=== PATIENT | female | born 1995 | race Caucasian/White ===

== ENCOUNTER 2017-11-08 17:20 | Emergency (ER) | payer OTHER ==
[2017-11-08 17:31] VITALS: BP 126/89
[2017-11-08] MEDS ORDERED: predniSONE 20 MG TABLET PO STA (17:44)
[2017-11-08] MEDS ORDERED: HYDROcod/ACET 5/325 Prepack 4 PO STA (17:44)
--- NOTE | 2017-11-08 17:46 | ED Physician Documentation ---
History of Present Illness - Stated complaint Stated Complaint: BILAT LEG PX/WEAKNESS - Chief complaint Chief Complaint: Ext Problem - History obtained from History obtained from: Patient - History of Present Illness Timing: Other (She been having left lower back pain for several weeks. She seen her physician and had normal labs and it sounds like she is being referred for EMG testing. Starting today she has felt weak and numb on the lateral left leg which is new. There is no associated saddle anesthesia or fevers. No incontinence.) Review of Systems Constitutional: denies: Fever, Chills Cardiac: denies: Chest pain / pressure, Palpitations Respiratory: denies: Dyspnea, Cough GI: denies: Abdominal Pain PD PAST MEDICAL HISTORY - Past Medical History Past Medical History: Yes Psych: Depression, Anxiety - Past Surgical History Past Surgical History: No - Present Medications Home Medications: Ambulatory Orders Medication Instructions Recorded Confirmed Bupropion HCl [Wellbutrin] 300 mg DAILY 09/05/14 01/18/15 Escitalopram [Lexapro] 10 mg PO DAILY 11/08/17 11/08/17 HYDROcod/ACETAM 5/325 [[place] 5/325] 1 - 2 ea PO Q6H PRN #15 tablet 11/08/17 predniSONE [Deltasone] 20 mg PO [id number] #21 tab 11/08/17 - Allergies Allergies/Adverse Reactions: Allergies Allergy/AdvReac Type Severity Reaction Status Date / Time No Known Drug Allergies Allergy Verified 11/08/17 17:31 - Social History Does the pt smoke?: No Smoking Status: Never smoker Does the pt drink ETOH?: Yes Does the pt have substance abuse?: No - Immunizations Immunizations are current?: Yes PD ED PE NORMAL - Vitals Vital signs reviewed: Yes - General General: Alert and oriented X 3, No acute distress - Abdomen Abdomen: Normal bowel sounds, Soft, Non tender - Back Back: Other (She has diminished sensation over the left lateral thigh, the rest of the leg is grossly intact, she has equal patellar reflexes but a decreased Achilles reflex on the left.) - Neuro Neuro: Alert and oriented X 3, Normal speech - Psych Psych: Normal mood, Normal affect Results - Vitals Vitals: Vital Signs - 24 hr 11/08/17 17:29 Temperature 36.2 C L Heart Rate 78 Respiratory 20 Rate Blood Pressure 126/89 H O2 Saturation 98 Oxygen O2 Source Room air PD MEDICAL DECISION MAKING - ED course ED course: The left lower back pain that she has been dealing with for a few weeks is now declared itself as being due to probably a disc herniation on the left causing radicular symptoms which she is treated with prednisone and Vicodin. - Sepsis Event Vital Signs: Vital Signs - 24 hr 11/08/17 17:29 Temperature 36.2 C L Heart Rate 78 Respiratory 20 Rate Blood Pressure 126/89 H O2 Saturation 98 Oxygen O2 Source Room air Departure - Departure Disposition: 01 Home, Self Care Clinical Impression: Lumbar radiculopathy Condition: Good Record reviewed to determine appropriate education?: Yes Instructions: ED Sciatica Prescriptions: HYDROcod/ACETAM 5/325 [[place] 5/325] 1 - 2 ea PO Q6H PRN #15 tablet PRN Reason: Pain predniSONE [Deltasone] 20 mg PO [id number] #21 tab Comments: Call your doctor to arrange a follow-up appointment, make the next available appointment. In the interim, return anytime if worse or if new symptoms develop. Your blood pressure was elevated today on check into the emergency department. This does not mean that you have hypertension, it is a common phenomenon to come to the emergency department and have elevated blood pressure. I recommend that you see your primary care physician within the week to have it rechecked when you are feeling better. Do not drink or drive while taking narcotic pain medication. Note that many narcotic pain relievers also contain Tylenol/acetaminophen. Please ensure that your total dose of acetaminophen from all sources does not exceed 3 g (3000 mg) per day. You may get constipated while on this medication. Take a stool softener such as Colace twice a day while you are on it. Also add an xrvm-cyv-gyyjodm laxative such as senna or MiraLAX on any day that you do not have a bowel movement. If you received a narcotic pain medication or sedative while in the emergency department, do not drive for the next 24 hours.
== END 2017-11-08 18:13 | disposition home or self-care (01) ==
LOC: ED 17:20
DX: M54.16 Radiculopathy, lumbar region (principal)
CPT/HCPCS: 99283; J7512

== ENCOUNTER 2018-07-16 13:06 | Day surgery (SDC) | payer OTHER ==
[2018-07-16] MEDS ORDERED: LACTATED RINGERS 1,000 ML IV ONE ×2 (13:31→15:15)
[2018-07-16] MEDS ORDERED: BUPIVACAINE 0.25% PF 10 ML VIAL ONE (13:38)
--- NOTE | 2018-07-16 13:48 | ANESTHESIA ---
Pre-Anesthesia VS, & Labs - Diagnosis Desires sterilization - Procedure Bilateral laparoscopic salpingectomies Height 5 ft 2 in Weight (kg) 58.97 kg Body Mass Index 25.0 - NPO >8 hours - Is Patient ?: No Home Medications and Allergies Home Medications: Ambulatory Orders Amitriptyline [Elavil] 10 mg PO HS 07/08/18 DULoxetine [Cymbalta] 90 mg PO DAILY 07/08/18 Amitriptyline [Elavil] 10 mg PO HS 07/08/18 DULoxetine [Cymbalta] 90 mg PO DAILY 07/08/18 Allergies/Adverse Reactions: Allergies Allergy/AdvReac Type Severity Reaction Status Date / Time No Known Drug Allergies Allergy Verified 07/08/18 09:58 Anes History & Medical History - Anesthetic History Family history of Anesthesia Complications: Denies Family history of Malignant Hyperthermia: Denies - Medical History Cardiovascular: reports: None Pulmonary: reports: None Gastrointestinal: reports: None Urinary: reports: None Neuro: reports: None Musculoskeletal: reports: Fibromyalgia, Chronic back pain Endocrine/Autoimmune: reports: None Blood Disorders: reports: None Skin: reports: None Smoking Status: Never smoker Psychosocial: reports: Depression, Other (History of PTSD) Exam General: Alert, Oriented x3, Cooperative, No acute distress Dental: WNL, Other (chipped front) Mouth Openin Fingerbreadth Neck Mobility: Normal Mallampati classification: I Thyromental Distance: 4-6 cm Respiratory: Lungs clear, Normal breath sounds, No respiratory distress, No accessory muscle use Cardiovascular: Regular rate, Normal S1, Normal S2, No murmurs Mental/Cognitive Status: Alert/Oriented X3, Normal for patient Plan Anesthesia Type: General Consent for Procedure(s) Verified and Reviewed: Yes Code Status: Attempt Resuscitation ASA classification: 2-Mild systemic disease Is this case an emergency?: No
[2018-07-16] MEDS ORDERED: BUPIVACAINE 0.25% PF 10 ML VIAL SUBQ ONE ×2 (14:51)
[2018-07-16] MEDS ORDERED: SUGAMMADEX 200 MG/2 ML VIAL IVP ONE (15:28)
[2018-07-16] MEDS ORDERED: MIDAZOLAM 2 MG/2 ML VIAL IVP ONE ×2 (15:33)
[2018-07-16] MEDS ORDERED: PROPOFOL 200 MG/20 ML VIAL IVP ONE ×2 (15:33)
[2018-07-16] MEDS ORDERED: HYDROmorphone 1 MG/ML SYRINGE IM ONE ×2 (15:33)
[2018-07-16] MEDS ORDERED: ROCURONIUM 50 MG/5 ML VIAL IVP ONE ×2 (15:33)
[2018-07-16] MEDS ORDERED: fentaNYL 100 MCG/2 ML VIAL IVP ONE ×2 (15:33)
[2018-07-16] MEDS ORDERED: ONDANSETRON 4 MG/2 ML VIAL IVP ONE ×2 (15:33)
[2018-07-16] MEDS ORDERED: KETOROLAC 30 MG/ML VIAL IVP ONE ×2 (15:33)
[2018-07-16] MEDS ORDERED: DEXAMETHASONE 4 MG/ML VIAL IVP ONE ×2 (15:33)
[2018-07-16] MEDS ORDERED: ACETAMINOPHEN 1,000 MG/100 ML 100 ML IV ONE (15:44)
[2018-07-16] MEDS ORDERED: HYDROcod/ACETAM 10 MG/325 MG TABLET PO PRN (15:51)
[2018-07-16] MEDS ORDERED: HYDROmorphone 0.5 MG/0.5 ML SYRINGE ONE (15:54)
--- NOTE | 2018-07-16 15:54 | OPERATIVE REPORT ---
Operative Report - General Procedure Date: 07/16/18 Planned Procedure: Laparoscopic bilateral salpingectomies Pre-Op Diagnosis: Undesired fertility Procedure Performed: Same as above Post Op Diagnosis: Same as above - Procedure Note Primary Surgeon: Adan Secondary Surgeon: Lenard Anesthesia Provider: Yolette Anesthesia Technique: General ET tube Pathology: Portions of both fallopian tubes Estimated Blood Loss (mL): 5 Indications: Undesired fertility Findings: Examination under anesthesia The uterus was of normal size shape and consistency and retroverted. The adnexa were benign. Operative findings: The uterus, tubes and ovaries are all within normal limits. The posterior cul-de-sac had 2 Macarena's windows. Both ovarian fossae were normal. The anterior cul-de-sac was normal. The appendix, liver edge, and gallbladder all appeared normal. - Other Other Information/Narrative: Procedure: The patient was taken to the operating room, where general endotracheal anesthesia was administered without difficulty. She was then positioned in the low dorsal lithotomy position with her lower extremities in [place] stirrups. Vagina, perineum, and abdomen were then prepped and draped in a sterile fashion. Procedure Time-Out was then performed. A sterile bivalve speculum was then inserted into the vagina. A tenaculum was placed at the anterior lip of the cervix, then a HUMI uterine manipulator was placed and the balloon inflated. The tenaculum and speculum were then removed from the vagina. Attention was then turned to the laparoscopy. 0.25% Marcaine was injected infraumbilically, then a 7-mm horizontal skin incision made. A Verres needle was then inserted through the anterior layers of the abdominal wall with saline drop test suggesting intraperitoneal placement. Carbon dioxide gas insufflation was then performed with appropriate opening pressures noted. Once 2 L of gas was instilled, a 0-degree, 5 mm laparoscope was inserted into a 5 mm trocar and passed through the anterior layers of the abdominal wall using Optiview technique. The abdomen was visualized, then 2 additional ports placed at the right and left lower quadrants, first instilling local anesthetic, then placing 5 mm ports. The patient was placed into Trendelenberg and bowel swept out of the cul-de-sac. The right, distal fallopian tube was then grasped and pulled anteriorly and superiorly. The tubo-ovarian ligament was then crossclamped, cauterized, and cut using the PlasmaKinetic, then the mesosalpinx was crossclamped, cauterized, and cut, completely the right fallopian tube from the uterus at the cornual region. The right fallopian tube was then removed from the abdomen. The left distal fallopian tube was then grasped and pulled anteriorly and superiorly. The tubo-ovarian pedicle was then crossclamped, cauterized, and cut, the distal left fallopian tube from the left ovary. The mesosalpinx was then serially cauterized and cut until the cornual region was reached, then the cornual fallopian tube was crossclamped cauterized and cut. The surgical sites appeared hemostatic. The left fallopian tube was removed from the abdomen. At this point the laparoscopy was deemed complete, and all trochars were removed from the abdomen. The carbon dioxide gas was then allowed to escape. The incisions were then closed with 4-0 Monocryl in a subcuticular fashion followed by Dermabond skin adhesive. The HUMI uterine manipulator was removed. The sterile bivalve speculum was then reinserted to ensure that the tenaculum sites were hemostatic. No bleeding was noted, and the speculum was then removed. At this point the procedure was deemed complete. The patient was then replaced supine, awakened, extubated, and transferred to the PACU in stable condition.
[2018-07-16 16:08] LABS: HCG UR QUAL NEGATIVE
[2018-07-16 17:24] VITALS: BP 121/67
== END 2018-07-16 13:07 | disposition home or self-care (01) ==
LOC: SDS 13:06
PROVIDERS: ATTEND Obstetrics & Gynecology
PROC: 0UB74ZZ Excision of Bilateral Fallopian Tubes, Percutaneous Endoscopic Approach (ICD-10-PCS; principal; 2018-07-16 14:30)
DX: Z30.2 Encounter for sterilization (principal)
CPT/HCPCS: 58661; 81025; J0131; J1170; J7120

== ENCOUNTER 2021-03-26 14:45 | Emergency (ER) | payer OTHER ==
--- NOTE | 2021-03-26 15:35 | ED Physician Documentation ---
PD HPI HEAD INJURY - Stated complaint Stated Complaint: HEAD INJ - Chief complaint Chief Complaint: Trauma Hd/Nk - History obtained from History obtained from: Patient - History of Present Illness Mechanism of head injury: Fell Where head injury occurred: [place] (she was sledding down hill and foot caught snow, turned the sled and she slammed into fencepost, striking back of head. Denies other injury.) Timing - onset: How many minutes ago (20) Location of injury: Back Quality of pain: Throbbing, Aching Associated symptoms: AMS, Nausea / vomiting. No: LOC (dazed for few seconds and then felt lightheaded and some nausea. Improving now.), Neck pain, Paresthesias Symptoms worsen with: Palpation Contributing factors: No: Anticoagulated, Intoxicated Similar symptoms before: Has not had sx before Review of Systems Constitutional: denies: Fever Nose: denies: Rhinorrhea / runny nose, Congestion Throat: denies: Sore throat Respiratory: denies: Cough GI: reports: Nausea (for few minutes). denies: Vomiting, Diarrhea Skin: reports: Laceration (s) (scalp) Musculoskeletal: denies: Neck pain, Back pain Neurologic: denies: Focal weakness, Numbness PD PAST MEDICAL HISTORY - Past Medical History Cardiovascular: None Respiratory: None Neuro: None Endocrine/Autoimmune: None GI: None : None HEENT: None Psych: Depression Musculoskeletal: Fibromyalgia, Chronic back pain Derm: None - Past Surgical History Past Surgical History: No - Present Medications Home Medications: Ambulatory Orders Medication Instructions Recorded Confirmed Amitriptyline [Elavil] 10 mg PO HS 07/08/18 07/16/18 DULoxetine [Cymbalta] 90 mg PO DAILY 07/08/18 07/16/18 - Allergies Allergies/Adverse Reactions: Allergies Allergy/AdvReac Type Severity Reaction Status Date / Time No Known Drug Allergies Allergy Verified 03/26/21 15:04 - Social History Does the pt smoke?: No Smoking Status: Never smoker Does the pt drink ETOH?: Yes Does the pt have substance abuse?: No - Immunizations Immunizations are current?: Yes PD ED PE NORMAL - Vitals Vital signs reviewed: Yes - General General: Alert and oriented X 3, Well developed/nourished - HEENT HEENT: PERRL, EOMI, Other (scalp lac vertically right occiput, 3 cm without FB. Mild current active bleeding. ) - Neck Neck: Supple, no meningeal sign, No bony TTP, No adenopathy - Cardiac Cardiac: RRR, No murmur - Respiratory Respiratory: Clear bilaterally - Abdomen Abdomen: Soft, Non tender - Back Back: No spinal TTP - Derm Derm: Normal color, Warm and dry - Neuro Neuro: Alert and oriented X 3, toddler nanny 2-12 intact, No motor deficit, No sensory deficit, Normal speech, Other Eye Opening: Spontaneous Motor: Obeys Commands Verbal: Oriented GCS Score: 15 Results - Vitals Vitals: Oxygen O2 Source Room air - Rads (name of study) head CT Radiology: Prelim report reviewed (no ICH nor fractures. ), See rad report Procedures - Laceration (location) occipital scalp Length in cm: 3 Wound type: Linear, Into subcut fat, Clean Neurovascular status: Sensory intact Anesthesia: Lidocaine 1% with epi Wound preparation: Irrigated copiously NS Skin layer closure: [place], Interrupted Other: Patient tolerated well, No complications, Neurovascular intact, Tetanus UTD PD MEDICAL DECISION MAKING - ED course Complexity details: re-evaluated patient (CT head okay. SCalp lac numbed and stapled without problems. ), considered differential (mild concussive headache and felt confused, but can get CT since good impact to cause scalp lac and symptoms. ), d/w patient Departure - Departure Disposition: 01 Home, Self Care Clinical Impression: Occipital scalp laceration Qualifiers: Encounter type: initial encounter Qualified Code(s): S01.01XA - Laceration without foreign body of scalp, initial encounter Head contusion Qualifiers: Encounter type: initial encounter Contusion of head detail: scalp Qualified Code(s): S00.03XA - Contusion of scalp, initial encounter Condition: Stable Record reviewed to determine appropriate education?: Yes Instructions: ED Laceration Scalp Stitch Or Stap Follow-Up: LINDSAY MICHAUD MD [Primary Care Provider] - Comments: It is okay to wash and shower. Clean off the wound twice a day with soap and water, or peroxide and water. Apply some antibiotic ointment to it to keep it moist. Also to watch for signs of infection such as purulence, redness or increasing pain. Return to your primary care or the ER at the specified time for suture removal. [place] removal in 9 or 10 days. Tylenol or ibuprofen as needed for pains. There will likely be some slight oozing of blood from the wound this evening until it seals up a little better. You may have a mild concussive type symptoms of headache, off balance, decreased concentration or such for a few days. Be careful about driving or dangerous activities with that in mind. Discharge Date/Time: 03/26/21 16:59
[2021-03-26] MEDS ORDERED: IBUPROFEN 600 MG TABLET PO STA (15:44)
[2021-03-26] MEDS ORDERED: ACETAMINOPHEN 325 MG TABLET PO STA (15:44)
--- NOTE | 2021-03-26 16:17 | CT Report ---
PROCEDURE: HEAD WO INDICATIONS: struck head sledding, brief LOC and headache TECHNIQUE: Noncontrast 4.5 mm thick angled axial sections acquired from the foramen magnum to the vertex. For r adiation dose reduction, the following was used: automated exposure control, adjustment of mA and/or kV according to patient size. COMPARISON: None. FINDINGS: BRAIN PARENCHYMA: Normal parenchymal density. No acute cortical based (large territory) infarction, i ntracranial hemorrhage, mass or mass effect, or abnormal fluid collection. The density in the larger dural venous sinuses is grossly normal. VENTRICLES: Normal in size, shape, and position. BONES/SINUSES: The skull base and calvarium demonstrate no acute abnormality. The paranasal sinuses a nd mastoid air cells are well aerated. IMPRESSION: 1.No acute intracranial abnormality. Reviewed by: Ceasar Silverman MD on 03/26/2021 4:16 PM [facility] Approved by: Ceasar Silverman MD on 03/26/2021 4:16 PM [facility] Station ID: [id number]
[2021-03-26 16:59] VITALS: BP 124/70
== END 2021-03-26 16:59 | disposition home or self-care (01) ==
LOC: ED 14:45
DX: S01.01XA Laceration without foreign body of scalp, initial encounter (principal); S00.03XA Contusion of scalp, initial encounter; Y93.23 Activity, snow (alpine) (downhill) skiing, snowboarding, sledding, tobogganing and snow tubing; W17.81XA Fall down embankment (hill), initial encounter; W22.8XXA Striking against or struck by other objects, initial encounter
CPT/HCPCS: 12002; 70450; 99282; 99284; A9270